=== PATIENT | male | born 1985 | race American Indian/Alaskan Native ===

== ENCOUNTER 2018-05-31 22:23 | Emergency (ER) | payer OTHER ==
[2018-05-31 22:33] VITALS: BMI 34.0
[2018-05-31] MEDS ORDERED: Sodium Chloride 0.9% 1,000 ML IV ONE (22:51)
--- NOTE | 2018-05-31 22:51 | C.PDOC ---
History Of Present Illness Patient presents with fever, chills, diffuse body ache, cough with small greenish sputum, and some chest discomfort with cough only, worsening iver the last few days. Tolerating po. Speaking in complete sentences Time Seen by Provider: 05/31/18 22:50 Chief Complaint (Nursing): Flu-like Symptoms History Per: Patient History/Exam Limitations: no limitations Onset/Duration Of Symptoms: Days Current Symptoms Are (Timing): Still Present Severity: Moderate Pain Scale Rating Of: 5 Recent travel outside of the [place]: No Additional History Per: Patient Past Medical History Reviewed: Historical Data, Nursing Documentation, Vital Signs Vital Signs: Last Vital Signs Temp 102.8 F H 05/31/18 22:40 Pulse 120 H 05/31/18 22:35 Resp 19 05/31/18 22:35 BP 126/76 05/31/18 22:35 Pulse Ox 98 05/31/18 22:35 - Medical History PMH: Asthma Denies: Chronic Kidney Disease Family History: States: No Known Family Hx - Social History Hx Alcohol Use: No Hx Substance Use: Yes (marijuana) - Immunization History Hx Tetanus Toxoid Vaccination: Yes Hx Influenza Vaccination: No Hx Pneumococcal Vaccination: No Review Of Systems Constitutional: Positive for: Fever, Chills, Malaise ENT: Negative for: Throat Pain Cardiovascular: Positive for: Chest Pain (with cough) Respiratory: Positive for: Cough, Sputum (green) Gastrointestinal: Negative for: Abdominal Pain Genitourinary: Negative for: Dysuria Musculoskeletal: Negative for: Back Pain Skin: Negative for: Rash Neurological: Negative for: Weakness Psych: Negative for: Anxiety Physical Exam - Physical Exam Appears: Non-toxic Skin: Warm, Dry Head: Normacephalic Eye(s): bilateral: Normal Inspection Nose: Normal Oral Mucosa: Dry Lips: Other (dry) Throat: No Erythema Neck: Supple Chest: Symmetrical Cardiovascular: Rhythm Regular Respiratory: No Rales, Rhonchi, No Wheezing Gastrointestinal/Abdominal: Soft, No Tenderness, No Distention Back: No CVA Tenderness Extremity: Normal ROM Extremity: Bilateral: Atraumatic Neurological/Psych: Oriented x3 Gait: Steady ED Course And Treatment - Laboratory Results Result Diagrams: 05/31/18 23:11 05/31/18 23:11 ECG: Interpreted By Me, Viewed By Me ECG Rhythm: Sinus Tachycardia (127), Nonspecific Changes O2 Sat by Pulse Oximetry: 98 Pulse Ox Interpretation: Normal - Radiology CXR: Interpreted by Me, Viewed By Me CXR Interpretation: No: Infiltrates, Fracture, Pnemothorax Reevaluation Time: : Reassessment Condition: Improved Disposition Counseled Patient/Family Regarding: Studies Performed, Diagnosis, Need For Followup, Rx Given - Disposition Referrals: [facility] [Outside] [facility] [Outside] Disposition: HOME/ ROUTINE Disposition Time: Condition: FAIR Additional Instructions: Please returnr if symptoms recur Prescriptions: Albuterol HFA [Ventolin HFA 90 mcg/actuation (8 g)] 2 puff IH [id number] PRN 1 Days #1 puff PRN Reason: Wheezing Albuterol/Ipratropium [Duoneb 3 MG/3 Ml-0.5 MG/3 Ml 3 Ml] 1 ea IH QID PRN #50 neb PRN Reason: Wheezing Azithromycin [Zithromax Tri-Darrick] 500 mg PO ONCE #3 tablet Instructions: Viral Upper Respiratory Infection, Adult (DC) Forms: [employer] (Sami) - Clinical Impression Clinical Impression: URI (upper respiratory infection)
[2018-05-31 23:16] LABS: BASO % 0.5 % (0.0-2.0); EOS # 0.2 K/uL (0.0-0.7); LYMPH # 1.1 K/uL (1.0-4.3); LYMPH % 14.3 % (20.0-40.0); MEAN CELL VOLUME 69.4 fL (80.0-94.0); MEAN CORPUSCULAR HEMOGLOBIN 22.4 pg (27.0-31.0); MEAN CORPUSCULAR HGB CONC 32.3 g/dL (33.0-37.0); MEAN PLATELET VOLUME 8.8 fL (7.2-11.7); MONO # 1.1 K/uL (0.0-0.8); MONO % 14.3 % (0.0-10.0); NEUT # 5.1 K/uL (1.8-7.0); NEUT % 67.9 % (50.0-75.0); RBC 6.24 Mil/uL (4.40-5.90); RED CELL DISTRIBUTION WIDTH 17.7 % (11.5-14.5); WHITE BLOOD COUNT 7.6 K/uL (4.8-10.8)
[2018-05-31 23:28] LABS: ALB/GLOB RATIO 1.1 (1.0-2.1); ALBUMIN 4.8 g/dL (3.5-5.0); BLOOD UREA NITROGEN 13 mg/dL (9-20); CALCIUM 9.7 mg/dl (8.6-10.4); GFR NON-AFRICAN AMERICAN > 60
[2018-05-31 23:29] LABS: ALT/SGPT 20 U/L (21-72); AST/SGOT 29 U/L (17-59)
[2018-06-01 00:14] LABS: VENOUS BLOOD GAS BASE EXCESS 3.8 mmol/L (0.0-2.0); VENOUS BLOOD GAS PCO2 46 mmHg (40-60); VENOUS BLOOD GAS PO2 31 mm/Hg (30-55); VENOUS BLOOD PH 7.41 (7.32-7.43)
[2018-06-01] MEDS ORDERED: Sodium Chloride 0.9% 1,000 ML IV ONE (00:20)
[2018-06-01] MEDS ORDERED: Sodium Chloride 0.9% 1,000 ML ONE (00:46)
[2018-06-01 02:15] VITALS: BP 104/68; PULSE 74; RESP 18; TEMP 99.2; O2SAT 100
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
== END 2018-06-01 02:15 | disposition home or self-care (01) ==
LOC: C.ER 22:23
DX: J06.9 Acute upper respiratory infection, unspecified (principal)
CPT/HCPCS: 71045; 80053; 82803; 84484; 85025; 87804; 93005; 96361; 96374; 99283; J1885; J7030